=== PATIENT | male | born 1985 | race Caucasian/White ===

== ENCOUNTER → 2019-02-15 | Day surgery (SDC) | payer OTHER ==
[~2019-02-15] MED LIST: CETI10TA16 PO; IV RINGERS,LACTATED 1000ML 1,000 ML IV SCH; LIDOCAINE 1% PF 2 ML VIAL. ID PRN; MELO7.5T5 PO; MIDAZOLAM HCL/PF 2 MG/2 ML VIAL. IV PRN; PANT20TA2 PO; PROPOFOL 40 ML IV ONE; fentaNYL PF VIAL 100 MCG/2 ML VIAL IV PRN
--- NOTE | 2019-02-15 07:33 | CONS ---
DATE OF CONSULTATION: REASON FOR CONSULTATION: Recurrent dysphagia. HISTORY OF PRESENT ILLNESS: A 33-year-old male whose past medical history is significant for long-standing gastroesophageal reflux disease as well as osteoarthritis, is seen with worsening heartburn. He has been on Protonix 40 mg daily without significant improvement. Risk factors for reflux are positive for caffeine, but negative for alcohol and nicotine at this time. The patient states that several hours after he eats, he has regurgitation of food, both solids and liquids, suggesting that the food is not passing. Weight has been stable. There has been no change in appetite. He is otherwise without additional complaints. PAST MEDICAL HISTORY: Osteoarthrosis, gastroesophageal reflux disease, he is status post tonsillectomy, status post back surgery. ALLERGIES: None. MEDICATIONS: Include cetirizine, Mobic, Protonix. FAMILY AND SOCIAL HISTORY: Does not drink or smoke at this time. Presently, he is incarcerated. REVIEW OF SYSTEMS: As per records. PHYSICAL EXAMINATION: GENERAL: Reveals a well-nourished, well-developed male who is alert and cooperative, in no acute distress. VITAL SIGNS: Temperature 98.3, pulse 81, respirations 20. HEENT: Reveals normocephalic and atraumatic head. Pupils and extraocular muscles are not tested. Sclerae are anicteric. NECK: Supple. LUNGS: Clear. CARDIOVASCULAR: Reveals S1, S2 without S3, S4 or appreciable murmur. ABDOMEN: Reveals soft abdomen, normal bowel sounds without appreciable hepatosplenomegaly. EXTREMITIES: Reveals no cyanosis, clubbing or edema. IMPRESSION: Gastroesophageal reflux disease with possible dysphagia, etiology is to be determined. Differential includes achalasia, Rivas's, stricture, malignancy, eosinophilic esophagitis, gastroparesis. We, therefore, recommend upper endoscopy with possible biopsy and dilatation. Risks and benefits have been discussed with the patient including risk of hemorrhage and perforation, he is willing to proceed. CHIN FRANCO MD DR: TOMASA/rosibel JOB#: [id number] / [id number] [facility], [facility]
[2019-02-15 07:49] VITALS: BP 144/93
--- NOTE | 2019-02-16 13:08 | PATHOLOGY ---
[facility] Accession Number: [id number] . 01 Material submitted: . DISTAL ESOPHAGUS BIOPSY . 01 Clinical history: . Pre-OP DX: GERD, dysphagia Post-OP DX: Rule out Rivas's . 02 Diagnosis: Esophagus, distal, biopsy: - Fragments of superficial squamous epithelium with no pathologic diagnosis. - Separate fragment of columnar epithelium with moderate chronic inflammation and no evidence of intestinal metaplasia. (SKM:ana cristina; 02/16/2019) QMS/02/16/2019 . 02 Electronically signed: . Eduin Padilla MD, Pathologist NPI- [id number] . 01 Gross description: . Received in formalin labeled "Awad, Baljinder, distal esophagus BX," are 5 segments of sorensen soft tissue measuring 0.9 x 0.9 x 0.2 cm in aggregate dimensions and ranging from 0.3 to 0.6 cm in maximum dimension. The specimen is submitted entirely in cassette A1. (TSD; 02/15/2019) TOB/TOB . 02 Pathologist provided ICD-10: K20.9 . 02 CPT . 708034 Specimen Comment: A courtesy copy of this report has been sent to Specimen Comment: [phone]. Specimen Comment: Report sent to Performed at: 01 [facility] [address], [place], [place] [id number] MD Francis Robles MD Phone: [phone] Performed at: 02 [facility] [address], [place] [id number] MD Alfonzo Quevedo MD Phone: [phone]
== END | disposition home or self-care (01) ==
LOC: EEVIPCON 06:07 → SURG 06:07
PROVIDERS: ATTEND Internal Medicine Gastroenterology
DX: K21.0 Gastro-esophageal reflux disease with esophagitis (principal); K22.8 Other specified diseases of esophagus; Z98.890 Other specified postprocedural states; Z79.899 Other long term (current) drug therapy; M19.90 Unspecified osteoarthritis, unspecified site
CPT/HCPCS: 43239; 43450; J2704; 88305

== ENCOUNTER → 2021-10-22 | Day surgery (SDC) | payer OTHER ==
[~2021-10-22] VITALS: Ht 167.6 cm; Wt 79.0 kg
[~2021-10-22] MED LIST changes: +ACET325T9 PO; +FENO145T3 PO; +FLUT9.9S16 NS; -LIDOCAINE 1% PF 2 ML VIAL. ID PRN; +LIDOCAINE 2% PF 5 ML VIAL. ONE; -MIDAZOLAM HCL/PF 2 MG/2 ML VIAL. IV PRN; +NAPR500T8 PO; +NORT25CA PO; +PROPOFOL 10 MG/ML (20ML) VIAL. IV ONE; -PROPOFOL 40 ML IV ONE; -fentaNYL PF VIAL 100 MCG/2 ML VIAL IV PRN
[2021-10-22 06:10] VITALS: BP 156/90
[2021-10-22 07:40] VITALS: BP 138/79
--- NOTE | 2021-10-22 10:32 | HP ---
DATE OF SERVICE: 10/22/2021 ADMIT DATE: 10/22/2021 UPDATED HISTORY AND PHYSICAL REASON: Recurrent dysphagia. HISTORY OF PRESENT ILLNESS: A 36-year-old male whose past medical history is significant for osteoarthrosis, gastroesophageal reflux disease, status post tonsillectomy, and back surgery, on medical therapy pantoprazole 20 mg b.i.d., was seen with recurrent dysphagia. The patient states he has increased difficulties in the posterior oropharynx and has regurgitated both solids and liquids. Previous dilatation has only been temporarily helpful. No family history of connective tissue disorder. No family history of achalasia to his knowledge. With continued issues, he is here today for further evaluation. PAST MEDICAL HISTORY: Osteoarthrosis, gastroesophageal reflux disease, status post tonsillectomy and back surgery. ALLERGIES: None. MEDICATIONS: Included Tylenol, cetirizine, fenofibrate, Flonase, Naprosyn, nortriptyline, and Protonix. FAMILY AND SOCIAL HISTORY: He does not drink or smoke. Presently he is incarcerated. PAST SURGICAL HISTORY: As stated. REVIEW OF SYSTEMS: Per records. PHYSICAL EXAMINATION: GENERAL: Reveals a well-nourished and well-developed male who is alert, cooperative, in no acute distress. VITAL SIGNS: Temperature 97.3, pulse 84, and respiratory rate 14. LUNGS: Clear. CARDIOVASCULAR: Reveals an S1, S2, without S3, S4 or appreciable murmur. ABDOMEN: Reveals a soft abdomen, normal bowel sounds, without appreciable hepatosplenomegaly. EXTREMITIES: Reveals no cyanosis, clubbing or edema. IMPRESSION: Dysphagia with apparent component of solids and liquids, motility disorder such as achalasia and/or anatomical deviation such as Zenker's diverticulum is certainly in the differential as well as eosinophilic esophagitis. Therefore, recommend upper endoscopy, possible biopsy or dilatation. Potential esophagram and esophageal motility study to further assess his symptoms may be pursued pending pathology and endoscopic findings. TOMASA/CHIP/MABEL DR: Carlota TID: [id number]
--- NOTE | 2021-10-24 20:24 | PATHOLOGY ---
[facility] Accession Number: [id number] . 01 Material submitted: . esophagus - DISTAL ESOPHAGUS BIOPSY. Modifiers: distal . 01 Clinical history: . EGD, CHOKING, SCHATZKI RING . 02 Diagnosis: Esophagus "distal", biopsy: - Esophageal squamous mucosa with reactive features; negative for dysplasia and malignancy. (MLK:justino; 10/24/2021) MBR 10/24/2021 1939 Local . 02 Electronically signed: . Libia Barbosa MD, Pathologist NPI- [id number] . 01 Gross description: . Received in formalin labeled "Baljinder Awad, distal esophagus biopsy" are multiple sorensen-brown soft tissue fragments measuring in aggregate 0.7 x 0.7 x 0.1 cm. The specimen is submitted entirely in A1. ([facility] [place]; 10/23/2021) [facility] 10/23/2021 0851 Local . 02 Pathologist provided ICD-10: Z03.89 . 02 CPT . 528567 Specimen Comment: A courtesy copy of this report has been sent to [phone], [phone] Specimen Comment: [phone] Specimen Comment: Report sent to / DR NEWBERRY Specimen Comment: A duplicate report has been generated due to demographic updates. Performed at: 01 [facility] [address], [place] [id number] MD Damon Hernandez MD Phone: [phone] Performed at: 02 [facility] [address] [id number] MD Zurdo Espitia MD Phone: [phone]
== END | disposition home or self-care (01) ==
LOC: ENDOS 06:05 → EEVIPCON 07:00
PROVIDERS: ATTEND Internal Medicine Gastroenterology
DX: R13.10 Dysphagia, unspecified (principal); K21.00 Gastro-esophageal reflux disease with esophagitis, without bleeding; K31.89 Other diseases of stomach and duodenum; M19.90 Unspecified osteoarthritis, unspecified site; E78.00 Pure hypercholesterolemia, unspecified; F41.9 Anxiety disorder, unspecified; F32.9 Major depressive disorder, single episode, unspecified; Z03.89 Encounter for observation for other suspected diseases and conditions ruled out; Z79.899 Other long term (current) drug therapy; Z98.890 Other specified postprocedural states
CPT/HCPCS: 43239; 43450; J2704; 88305